=== PATIENT | female | born 1985 | race Caucasian/White ===

== ENCOUNTER 2023-02-28 15:43 | Emergency (ER) | payer BC, SELFPAY ==
--- NOTE | ~2023-02-28 | CT_ITS ---
EXAMINATION: CT brain wo con DATE: 02/28/2023 20:37 INDICATION: synocpe . TECHNIQUE: Computed tomography (CT) of the head was performed without intravenous contrast. The mA wa s adjusted according to patient size. Iterative reconstruction technique was employed. The dose-lengt h product was 605.33 mGy-cm. COMPARISON: None. FINDINGS: No acute intracranial hemorrhage or extra-axial fluid collection. No hydrocephalus, mass, or herniation. No acute ischemic infarct. Unremarkable dural venous sinus attenuation. No acute osseous abnormality. The aerated spaces are clear. IMPRESSION: No acute intracranial process. Reviewed, dictated and finalized at location K.
--- NOTE | ~2023-02-28 | CT_ITS ---
EXAMINATION: CTA chest PE abdomen pel DATE: 02/28/2023 20:37 INDICATION: syncope, chest/epigastric pain, nausea vomiting. TECHNIQUE: Computed tomography angiography (CTA) of the chest was performed with 100 mL Omnipaque-350 intravenous contrast timed to evaluate the pulmonary arteries, followed by portal venous phase imagi ng of the abdomen and pelvis. Coronal maximum intensity projection 3D-reconstructions were created by the technologist. The dose-length product (DLP) was 951.58 mGy-cm. Automated exposure control and it erative reconstruction technique were employed. COMPARISON: None. FINDINGS: CHEST: Lung parenchyma and airways: Clear. Pleura: Unremarkable. Thoracic inlet, axillae and chest wall: Unremarkable. Thoracic aorta: Normal. Mediastinum: Normal. Heart and pericardium: Normal. Coronary artery calcifications: Absent. Thoracic bones: No acute osseous finding. Pulmonary arteries: Study quality: Adequate. No pulmonary emboli detected. ABDOMEN/PELVIS: Liver: Normal. Biliary/Gallbladder: Gallbladder is absent. No bile duct dilation. Pancreas: No mass or duct dilation. Spleen: Normal. Adrenals:No mass. Kidneys: No mass, stone, or hydronephrosis. GI tract: No small or large bowel dilation. Normal appendix. Mesentery/Peritoneum: No ascites, mass, or free air. Retroperitoneum: No mass. Pelvis: Distended urinary bladder without wall thickening. Normal uterus. IUD, in good position. Soft Tissues: Soft tissues and body wall unremarkable. Abdominopelvic bones: No acute osseous finding. IMPRESSION: No CT evidence of acute pulmonary embolus. Marked urinary bladder distention, correlate for clinical findings of urinary retention. Otherwise, no acute process detected in the chest, abdomen, or pelvis. Reviewed, dictated and finalized at location K. IMPRESSION: No CT evidence of acute pulmonary embolus. Marked urinary bladder distention, correlate for clinical findings of urinary r etention. Otherwise, no acute process detected in the chest, abdomen, or pelvis.
[2023-02-28 15:44] VITALS: BP 118/81; PULSE 58; RESP 14; TEMP 36.7; O2SAT 100
--- NOTE | 2023-02-28 15:46 | ECG_ITS ---
Measurements Intervals [place] Rate: 56 P: 59 ME: 177 QRS: 75 QRSD: 98 T: 39 QT: 431 QTc: 417 Interpretive Statements SINUS BRADYCARDIA DELAYED PRECORDIAL R/S TRANSITION BORDERLINE ECG NO PREVIOUS ECG AVAILABLE FOR COMPARISON Electronically Signed On 02-28-2023 17:47:21 CDT by Oskar Mosquera D.O.
[2023-02-28 16:04] LABS: Glucose Point of Care 101 mg/dl (65-105)
[2023-02-28 16:06] LABS: Basophils Absolute Auto 0.1 K/mm3 (0.0-0.1); Eosinophils Absolute Auto 0.1 K/mm3 (0-0.3); Eosinophils Percent Auto 1.4 % (0-4.4); Hemoglobin 13.6 g/dL (12.0-15.0); Immature Granulocyte Absolute 0.01 K/mm3 (0.00-0.031); Immature Granulocyte Percent A 0.2 % (0-0.5); Lymphocytes Absolute Auto 1.82 K/mm3 (0.9-3.2); Mean Corpuscular Hemoglobin 32.2 pg (26-34); Mean Corpuscular Volume 94.8 fl (80-100); Monocytes Absolute Auto 0.5 K/mm3 (0.1-0.6); Monocytes Percent Auto 7.8 % (2.6-8.5); Neutrophils Absolute Auto 3.8 K/mm3 (1.3-6.7); Neutrophils Percent Auto 60.6 % (45.5-73.1); Platelet Count Result 231 k/mm3 (150-375); Red Blood Count 4.22 M/mm3 (4.2-5.4); Red Cell Distribution Width 11.9 % (11.5-14.5); White Blood Count 6.3 K/mm3 (4.5-10.0)
[2023-02-28 16:15] LABS: Alanine Aminotransferase 28 U/L (6-35); Albumin Level 4.8 g/dL (3.5-5.1); Alkaline Phosphatase 68 U/L (38-126); Anion Gap 11 mmol/L (8-16); Aspartate Amino Transferase 46 U/L (14-36); Blood Urea Nitrogen 24 mg/dL (7-17); Calcium 9.3 mg/dL (8.4-10.2); Carbon Dioxide 23 mmol/L (22-30); Chloride 102 mmol/L (98-107); Estimated CRCL calculation 60 ml/min; Estimated Glomerular Filt Rate 56; Glucose 116 mg/dL (65-110); Potassium 3.9 mmol/L (3.4-5.0); Sodium 136 mmol/L (137-145)
[2023-02-28 19:47] VITALS: BP 112/69; PULSE 58
[2023-02-28 19:49] VITALS: BP 115/75; PULSE 60
[2023-02-28 19:50] VITALS: BP 121/73; PULSE 67
[2023-02-28 19:50] LABS: Lipase 81 U/L (23-300); Magnesium 2.1 mg/dL (1.6-2.3)
[2023-02-28] MEDS: SODIUM CHLORIDE 0.9% IV 1,000 ML 999 ML IV CONT (19:54)
[2023-02-28 20:03] LABS: Troponin I < 0.012 ng/mL (0.000-0.034)
[2023-02-28 20:13] LABS: Partial Thromboplastin Time 24.9 SECONDS (22.3-36.8); Prothrombin Time 13.9 Seconds (11.1-14.7)
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
[2023-02-28 20:39] LABS: Appearance Urine Cloudy (Clear); Bacteria Urine 1+ /hpf; Bilirubin Urine Negative (Negative); Blood Urine Negative (Negative); Color Urine Yellow (Yellow); Glucose Urine UA Negative (Negative); Ketones Urine Negative (Negative); Leukocyte Esterase Ur 3+ LEU/UL (Negative); Nitrate Urine Negative (Negative); Protein Urine Negative (Negative); Specific Grav Ur 1.016 (1.001-1.035); Squamous Epithelial Cell Urine Few /hpf (Few); Urobilinogen Urine 0.2 mg/dL (<2.0); WBC Urine 21-50 /hpf; pH Urine 5.5 (5.0-9.0)
[2023-02-28 20:41] LABS: Add Urine Microscopic? YES
[2023-02-28 20:43] VITALS: BP 116/67; PULSE 61; RESP 18; O2SAT 100
[2023-02-28 20:47] LABS: Troponin I < 0.012 ng/mL (0.000-0.034)
[2023-02-28] MEDS: CEPHALEXIN 500 MG CAPSULE PO (21:26)
[2023-02-28 21:31] VITALS: BP 121/68; PULSE 82; RESP 19; O2SAT 97
== END 2023-02-28 21:33 | disposition home or self-care (01) ==
PROVIDERS: Emergency Medicine; Emergency Provider Emergency Medicine; PCP Internal Medicine
DX: N39.0 Urinary tract infection, site not specified (principal); R55 Syncope and collapse; Z90.49 Acquired absence of other specified parts of digestive tract; R00.1 Bradycardia, unspecified
CPT/HCPCS: 36415; 70450; 71275; 74177; 80053; 81001; 81025; 82948; 83605; 83690; 83735; 84484; 85025; 85610; 85730; 87086; 87088; 93005; 96360; 99284; A9270; J7030; Q9967

== ENCOUNTER 2023-03-10 10:50 | Outpatient (CLI) | payer BC, SELFPAY ==
--- NOTE | 2023-03-13 12:30 | WPDHOLTEREM ---
Holter/Event Monitor Holter/Event Monitor Date of procedure: 03/10/23 Holter/Event Procedure: 48 Hr Holter Monitor Indications: Syncope Conclusion: 1. 48 hour holter monitor on 03/10/23. 2. Underlying rhythm is sinus rhythm. HR range 44-138 bpm; average HR 67 bpm. HR at 44 bpm at 04:36. 3. There are 7 premature supraventricular complexes. No supraventricular tachycardia. 4. There are 18 premature ventricular complexes and 1 ventricular couplet. No ventricular tachycardia. 5. No sinoatrial or atrioventricular blocks. No significant pauses greater than 2 seconds. 6. Patient reports symptoms of tightening in neck and chest which demonstrates sinus rhythm at 80 bpm.
== END 2023-03-10 10:51 | disposition home or self-care (01) ==
PROVIDERS: PCP Internal Medicine; Visit Provider Internal Medicine
DX: R55 Syncope and collapse (principal)
CPT/HCPCS: 93225; 93226

== ENCOUNTER → 2023-06-15 10:21 | Outpatient (CLI) | payer BC, SELFPAY ==
--- NOTE | ~2023-06-15 | XR_ITS ---
XR cervical spine 4-5V DATE: 06/15/2023 11:04 INDICATION: Neck pain TECHNIQUE: Standing AP, lateral, bilateral oblique and open-mouth views COMPARISON: None FINDINGS: C1 and C2 are normally aligned and the odontoid process is intact. No fracture or dislocati on or locked facet or prevertebral soft tissue swelling. There is reversal of cervical curvature which may be due to muscle spasm. The cervical interspaces are well preserved. There is no significant bony encroachment upon the neura l foramina. IMPRESSION: Reversal cervical curvature which may be due to muscle spasm; otherwise negative examinat ion Reviewed, dictated and finalized at location B. PLATER IMPRESSION: Reversal cervical curvature which may be due to muscle spasm; other nava negative examination
--- NOTE | ~2023-06-15 | XR_ITS ---
XR lumbar spine 2-3V DATE: 06/15/2023 11:04 INDICATION: Low back pain TECHNIQUE: Standing AP, lateral and coned lateral lumbosacral views COMPARISON: None FINDINGS: There is slight levoscoliosis of the lumbar spine. Included lower thoracic and lumbar pedicles are intact. No fracture or bone destruction or spondyloli sthesis. Lumbar and lumbosacral interspaces are well preserved. The sacroiliac joints are intact. Surgical clips overlie upper right quadrant, possibly due to cholecystectomy. IMPRESSION: Slight lumbar levoscoliosis Probable cholecystectomy Reviewed, dictated and finalized at location B. TICS PLATER
--- NOTE | ~2023-06-15 | XR_ITS ---
XR thoracic spine 2V DATE: 06/15/2023 11:04 INDICATION: Back pain TECHNIQUE: Standing AP, lateral, swimmer views COMPARISON: None FINDINGS: There is minimal dextroscoliosis. No fracture or dislocation or bone destruction. The thora cic pedicles are intact. Thoracic interspaces are preserved. No paraspinal soft tissue thickening. IMPRESSION: Slight dextroscoliosis; otherwise negative Reviewed, dictated and finalized at location B. TBAND FLANGER
--- NOTE | ~2023-06-15 | XR_ITS ---
XR shoulder LT min 2V DATE: 06/15/2023 11:04 INDICATION: Left shoulder pain TECHNIQUE: 4 views COMPARISON: None FINDINGS: No fracture or dislocation, periosteal reaction or bone destruction or abnormal soft tissue calcification. IMPRESSION: Negative Reviewed, dictated and finalized at location B. RVISOR ASSEMBLING IMPRESSION: Negative
== END ==
PROVIDERS: PCP Chiropractor; Visit Provider Chiropractor
DX: M54.2 Cervicalgia (principal); M54.50 Low back pain, unspecified; M25.512 Pain in left shoulder; M41.86 Other forms of scoliosis, lumbar region; M53.82 Other specified dorsopathies, cervical region
CPT/HCPCS: 72050; 72070; 72100; 73030

== ENCOUNTER 2023-08-05 13:57 | Outpatient (CLI) | payer BC, SELFPAY ==
--- NOTE | ~2023-08-05 | MR_ITS ---
EXAMINATION: MR shoulder LT wo con DATE: 08/05/2023 14:33 INDICATION: Left shoulder pain. TECHNIQUE: Magnetic resonance imaging (MRI) of the left shoulder was performed without intravenous co ntrast. Sequences included axial PD-weighted FS FSE, coronal oblique PD-weighted FS FSE and T2-weight ed FS FSE, and sagittal oblique T2-weighted FS FSE and T1-weighted FSE. COMPARISON: Left shoulder radiographs 06/15/2023 FINDINGS: Coracoacromial arch: The acromion undersurface is flat in morphology (type I). The acromioclavicular joint is normal. Ther e is mild subacromial/subdeltoid bursitis. Rotator cuff: There is mild tendinopathy of the junction of supraspinatus and infraspinatus tendons. Teres minor te ndon is normal. Subscapularis tendon is normal. There is no asymmetric fatty atrophy of the rotator c uff muscle bellies. Biceps tendon and glenoid labrum: Biceps tendon is in bicipital groove. Intra-articular biceps tendon is normal. The glenoid labrum is normal. Fluid: There is no glenohumeral joint effusion. Bones/cartilage: The glenoid cartilage is normal. Humeral head cartilage is normal. IMPRESSION: 1. Mild rotator cuff tendinopathy. No tear. 2. Mild subacromial/subdeltoid bursitis. Reviewed, dictated and finalized at location E. OGRAPH EDITOR
== END 2023-08-05 13:58 ==
LOC: MICIMG 13:58
PROVIDERS: PCP Clinical Nurse Specialist; Visit Provider Clinical Nurse Specialist
DX: M75.82 Other shoulder lesions, left shoulder (principal); M75.52 Bursitis of left shoulder
CPT/HCPCS: 73221

== ENCOUNTER 2024-05-17 09:27 | Outpatient (CLI) | payer BC, SELFPAY ==
--- NOTE | ~2024-05-17 | XR_ITS ---
Right elbow Technique: AP, oblique, and lateral views were obtained. Clinical History: Pain Findings: No acute fracture or dislocation is seen. Osseous alignment is anatomic. Joint spaces are p reserved. There is no displacement of the fat pads, and soft tissues are unremarkable. Impression: Unremarkable radiographs. Reviewed, dictated and finalized at location . Impression: Unremarkable radiographs.
== END 2024-05-17 09:28 | disposition home or self-care (01) ==
PROVIDERS: PCP Clinical Nurse Specialist; Visit Provider Clinical Nurse Specialist
DX: S59.901A Unspecified injury of right elbow, initial encounter (principal); X50.9XXA Other and unspecified overexertion or strenuous movements or postures, initial encounter
CPT/HCPCS: 73080

== ENCOUNTER 2024-06-16 07:30 | Outpatient (CLI) | payer BC, SELFPAY ==
--- NOTE | ~2024-06-16 | MR_ITS ---
EXAMINATION: MR elbow RT wo con DATE: 06/16/2024 08:05 INDICATION: Right elbow pain TECHNIQUE: Magnetic resonance imaging (MRI) of the right elbow was performed without intravenous cont rast. Sequences included coronal, axial, and sagittal PD-weighted FS FSE and coronal, axial, and sagi ttal PD-weighted FSE. COMPARISON: None FINDINGS: Osseous/other: Normal alignment. Normal marrow signal with no marrow edema, fracture, osteochondral lesion or abnor mal marrow replacing process. Minimal osteoarthritis at the proximal radioulnar and ulnotrochlear art iculations of the elbow joint. Tendons: Triceps, biceps brachii and brachialis tendons are normal. Common flexor tendon wad is normal. The c ommon extensor tendon wad is normal. Ligaments: The medial and lateral collateral ligament complexes are normal. Cubital tunnel: Cubital tunnel is unremarkable with normal signal and caliber of the ulnar nerve. Fluid: Physiologic amount of fluid the elbow joint. IMPRESSION: 1. 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 Otherwise normal right elbow MRI. Reviewed, dictated and finalized at location B. ANICAL DESIGN DRAFTER
== END 2024-06-16 07:31 | disposition home or self-care (01) ==
PROVIDERS: PCP Clinical Nurse Specialist; Visit Provider Clinical Nurse Specialist
DX: M19.021 Primary osteoarthritis, right elbow (principal)
CPT/HCPCS: 73221